=== PATIENT | male | born 1985 | race Caucasian/White ===

== ENCOUNTER 2017-08-15 21:10 | Emergency (ER) | payer OTHER ==
[2017-08-15] MEDS ORDERED: Azithromycin 250 MG Tab PO ONE (21:11)
[2017-08-15] MEDS ORDERED: Ibuprofen Susp 100 MG/5 ML 5 ML UD Cup PO ONE (21:31)
[2017-08-15] MEDS: Ibuprofen 200 MG Tab PO ONE (21:45)
--- NOTE | 2017-08-15 21:48 | EDM.PDOC ---
ED HPI GENERAL MEDICAL PROBLEM - General Chief Complaint: Fever Stated Complaint: cough, fever, Time Seen by Provider: 08/15/17 21:32 Source of Information: Reports: Patient History Limitations: Reports: No Limitations - History of Present Illness INITIAL COMMENTS - FREE TEXT/NARRATIVE: States that he has had a cold for the last 2 weeks and starting this morning he developed high fever and chills and chest feels heavy and congested. Coughing up thick yellow and green. Feels hard to breathe. No nausea or diarrhea with it. Has been taking tylenol or advil without much improvement. Onset: Gradual Location: Reports: Chest Associated Symptoms: Reports: Cough, cough w sputum, Fever/Chills Generalized Pain Score (Numeric/FACES): 5 - Related Data Allergies Allergy/AdvReac Type Severity Reaction Status Date / Time No Known Allergies Allergy Verified 08/15/17 21:21 Home Meds: Home Meds . [No Known Home Meds] 08/15/17 [History] Past Medical History - Past Health History Medical/Surgical History: Denies Medical/Surgical History Social & Family History - Family History Family Medical History: Noncontributory - Tobacco Use Smoking Status *Q: Never Smoker - Caffeine Use Caffeine Use: Reports: None - Recreational Drug Use Recreational Drug Use: No - Living Situation & Occupation Living situation: Reports: , with Family Occupation: Employed ED ROS GENERAL - Review of Systems Review Of Systems: See Below Constitutional: Reports: Fever, Chills, Weakness HEENT: Reports: No Symptoms Respiratory: Reports: Shortness of Breath, Wheezing, Cough, Sputum Cardiovascular: Reports: No Symptoms GI/Abdominal: Denies: Constipation, Diarrhea, Nausea, Vomiting Musculoskeletal: Reports: No Symptoms Skin: Reports: No Symptoms Neurological: Reports: No Symptoms ED EXAM, GENERAL - Physical Exam Exam: See Below Exam Limited By: No Limitations General Appearance: Alert, Mild Distress Ears: Normal External Exam, Normal Canal, Normal TMs Nose: Normal Inspection Throat/Mouth: Normal Inspection, Normal Oropharynx, No Airway Compromise Head: Atraumatic, Normocephalic, Sinus Tenderness (across the maxillary sinus worse on the left.) Neck: Normal Inspection, Supple, Non-Tender Respiratory/Chest: Rhonchi (bilaterally worse on the right.), Wheezing ( expiratory.) Cardiovascular: Regular Rate, Rhythm, No Murmur GI/Abdominal: Normal Bowel Sounds, Soft, Non-Tender Back Exam: Normal Inspection Extremities: Normal Inspection, Non-Tender, Normal Capillary Refill Neurological: Alert, Oriented Skin Exam: Warm, Dry Course - Vital Signs Last Recorded V/S: Last Vital Signs Temp 102 F H 08/15/17 21:15 Pulse 131 H 08/15/17 21:15 Resp 20 08/15/17 21:15 BP 112/72 08/15/17 21:15 Pulse Ox 93 L 08/15/17 21:15 - Orders/Labs/Meds Orders: Active Orders 24 hr Category Date Time Status C-REACTIVE PROTEIN [CHEM] Stat Lab 08/15/17 21:31 Ordered CBC WITH AUTO DIFF [HEME] Stat Lab 08/15/17 21:31 Results MANUAL DIFFERENTIAL QA/NC [HEME] Stat Lab 08/15/17 21:31 Results Labs: Laboratory Tests 08/15/17 Range/Units 21:31 WBC 24.8 H* (5.0-10.0) 10^3/uL RBC 4.66 (4.50-6.00) 10^6/uL Hgb 13.6 L (14.0-18.0) g/dL Hct 40.9 (40.0-54.0) % MCV 87.8 (82.0-94.0) fL MCH 29.2 (27.0-32.0) pg MCHC 33.3 (33.0-38.0) g/dL RDW Coeff of Jasvir 13.0 (11.0-15.0) % Plt Count 221 (150-400) 10^3/uL Add Manual Diff Yes Meds: Medications Discontinued Medications Generic Name Dose Route Start Last Admin Trade Name Jero PRN Reason Stop Dose Admin Ibuprofen 600 mg 08/15/17 21:34 Motrin PO 08/15/17 21:35 ONETIME ONE - Re-Assessments/Exams Free Text/Narrative Re-Assessment/Exam: 08/15/17 22:02 In to discuss the results of chest xray and abnormal labs. Departure - Departure Time of Disposition: 22:06 Disposition: Home, Self-Care 01 Condition: Fair Clinical Impression: Pneumonia Qualifiers: Pneumonia type: due to unspecified organism Laterality: right Lung location: lower lobe of lung Qualified Code(s): J18.1 - Lobar pneumonia, unspecified organism - Discharge Information Instructions: Community-Acquired Pneumonia, Adult, [id number] Additional Instructions: tylenol alternating with advil every 2 hours to keep fever down zithromax- take the 2 tonight that were given to you and then 1 daily for the next 4 days Push fluids as much as possible. Recheck if not improving - Problem List & Annotations (1) Pneumonia SNOMED Code(s): 569439744 Code(s): J18.9 - PNEUMONIA, UNSPECIFIED ORGANISM Status: Acute Priority: High Current Visit: Yes Qualifiers: Pneumonia type: due to unspecified organism Laterality: right Lung location: lower lobe of lung Qualified Code(s): J18.1 - Lobar pneumonia, unspecified organism - Problem List Review Problem List Initiated/Reviewed/Updated: Yes - My Orders Last 24 Hours: My Active Orders 08/15/17 21:31 C-REACTIVE PROTEIN [CHEM] Stat CBC WITH AUTO DIFF [HEME] Stat MANUAL DIFFERENTIAL QA/NC [HEME] Stat - Assessment/Plan Last 24 Hours: My Active Orders 08/15/17 21:31 C-REACTIVE PROTEIN [CHEM] Stat CBC WITH AUTO DIFF [HEME] Stat MANUAL DIFFERENTIAL QA/NC [HEME] Stat
[2017-08-15] MEDS: methylPREDNISolone Acetate 80 MG/ML SDV IM ONE (22:12)
[2017-08-15] MEDS: cefTRIAXone 1 GM Vial IM ONE (22:13)
[2017-08-15] MEDS: Lidocaine 1% 20 ML MDV INJECT ONE (22:14)
[2017-08-15] MEDS: Take Home: Azithromycin 250 MG, 2 Tab Pack PO ONE (22:15)
== END 2017-08-15 22:35 | disposition home or self-care (01) ==
LOC: CC.ED 21:10
DX: J18.9 Pneumonia, unspecified organism (principal)
CPT/HCPCS: 36415; 71046; 85025; 86140; 99283; A9270; J0696; J1040; 96372

== ENCOUNTER 2023-06-25 10:29 | Emergency (ER) | payer SELFPAY ==
[2023-06-25 11:28] LABS: CORONAVIRUS COVID-19 NAA NEGATIVE (NEGATIVE); INFLUENZA A NAA NEGATIVE (NEGATIVE); INFLUENZA B NAA NEGATIVE (NEGATIVE)
== END 2023-06-25 11:50 | disposition home or self-care (01) ==
LOC: CC.ED 10:29
DX: J06.9 Acute upper respiratory infection, unspecified (principal); Z20.822 Contact with and (suspected) exposure to COVID-19
CPT/HCPCS: 0240U; 99283